=== PATIENT | female | born 1955 | race Caucasian/White ===

== ENCOUNTER 2017-07-18 20:25 | Emergency (ER) | payer OTHER ==
[~2017-07-18] VITALS: Ht 157.5 cm; Wt 91.0 kg
[~2017-07-18 20:25] MED LIST: BACT800T5 PO; CEPH500C3 PO
[2017-07-18] MEDS ORDERED: MULTTAB67 PO (20:36)
[2017-07-18] MEDS ORDERED: ACETAMINOPHEN 500 MG CPLT PO ONE (20:45)
--- NOTE | 2017-07-18 21:02 | RADRPT ---
EXAM DATE/TIME: 07/18/2017 20:44 [place] COMPARISON: No previous studies available for comparison. INDICATIONS : Fall tonight in parking lot of [facility] going into work. Pain on posterior aspect. MEDICAL HISTORY : None. SURGICAL HISTORY : None. ENCOUNTER: Initial ACUITY: 1 day PAIN SCORE: 6/10 LOCATION: Left Hand FINDINGS: Three view examination of the left hand demonstrates no acute fracture or malalignment. There is soft tissue swelling over the dorsum of the metacarpals. Mild osteophytic change is present.. The carpa l bones appear intact. The interphalangeal and metacarpophalangeal joints are intact. Bony minerali zation is normal. CONCLUSION: 1. Soft tissue swelling over the dorsum of the metacarpals with no acute fracture or malalignment. 2. Mild osteoarthritic change. Sahil Michele MD on July 18, 2017 at 20:59 Board Certified Radiologist. This report was verified electronically.
[2017-07-18 21:05] VITALS: BP 161/77; PULSE 87; RESP 16; TEMP 97.5
--- NOTE | 2017-07-18 21:13 | PD ---
HPI Chief Complaint: Fall Time Seen by Provider: 20:27 Travel History International Travel<30 days: No Contact w/Intl Traveler<30days: No Traveled to known affect area: No History of Present Illness HPI Patient comes in complaining of left hand pain after mechanical fall in the parking lot today. Patient states she went to get out of her car when her ankle gave out on her causing her to fall to her knees and catching herself with the left hand causing injury. Patient states she has been applying ice to it and working without any problems however her supervisor prepress recommended she be evaluated. Patient complaining of right hip pain describes as a soreness. Patient states she thinks she just aggravated her arthritis. Patient denies any head injury, loss consciousness, numbness tingling anywhere, loss of bowel or bladder, chest pain, shortness breath, or fevers. Denies any numbness or tingling. Denies any difficulty ambulating. Pain is worse to palpation. 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 SKIN: Focused skin assessment warm and dry. Superficial abrasions noted bilateral knees. HEAD: Atraumatic. Normocephalic. EYES: Pupils equal and round. EOMI. No scleral icterus. No injection or drainage. ENT: No nasal bleeding or discharge. Mucous membranes pink and moist. NECK: Trachea midline. Supple. No nuclear rigidity. CARDIOVASCULAR: Radial dorsal pulses 2+, intact, and equal bilaterally. Capillary refill less than 2 seconds.. RESPIRATORY: No accessory muscle use. No respiratory distress. MUSCULOSKELETAL: No obvious deformities. No clubbing. No cyanosis. No edema. Full range of motion. Wrist: FROM and equal BL with passive flexion, extension, and pronation/supination. Capillary refill less than 2 seconds distal to injury and equal BL. FROM distal to injury and equal BL. Strength distal to injury equal BL. NV intact distal to injury. Flexion and extension of thumb equal BL. Equal strength and movement with abduction/adductions of BL fingers. Team Physician strength equal BL. No tenderness to the anatomical snuffbox. Soft tissue swelling noted over the dorsal aspect of left hand second metacarpal. Mildly tender to palpation. There is no crepitus. Hip: FROM and equal BL with passive flexion, extension, Abduction, Adduction, and internal/external rotation. Pulses equal BL distal to injury. Capillary refill less than 2 seconds distal to injury and equal BL. FROM distal to injury and equal BL. Strength distal to injury equal BL. NV intact distal to injury and equal BL. Plantar flexion and dorsal flexion equal BL. Dorsal pulses equal BL. Sensation equal BL 1st web space. NEUROLOGICAL: Awake and alert. No obvious cranial nerve deficits. Motor grossly within normal limits. Normal speech. Normal gait. PSYCHIATRIC: Appropriate mood and affect; insight and judgment normal. Data Data Last Documented VS Vital Signs Date Time Temp Pulse Resp B/P (MAP) Pulse Ox O2 Delivery O2 Flow Rate FiO2 07/18/17 21:18 07/18/17 21:05 97.5 87 16 Orders Orders Acetaminophen (Tylenol) (07/18/17 20:45) Ice/Cold Pack (07/18/17 20:34) Hand, Complete ([id number]) (07/18/17 ) Ed Discharge Order (07/18/17 21:13) [facility] Medical Decision Making Medical Screen Exam Complete: Yes Emergency Medical Condition: Yes Interpretation(s) Left hand x-ray read by the radiologist shows: 1. Soft tissue swelling over the dorsum of the metacarpals with no acute fracture or malalignment. 2. Mild osteoarthritic change. Differential Diagnosis Fracture, strain, contusion, dislocation, other Narrative Course The patient appears to have suffered a contusion of the extremity. There is no clinical evidence to suspect bony injury by exam. Radiographic examination revealed no fracture seen at this time. The patient has full range of motion on active and passive motions. There is no significant edema. There is no proximal or distal joint effusion. The distal extremity appears neurovascularly intact, without evidence of neurovascular injury nor compartment syndrome. Tendon exam also was intact. The patient was discharged on pain medication instructions and given warnings for vascular compromise. The patient is to follow up with their regular physician. The patient agrees with plan. Patient in no obvious distress upon re-evaluation. All pertinent Radiology result(s) discussed with patient. Any questions/concerns in reference to patient diagnosis/condition discussed and clarified prior to patient's discharge. Reinforced sheer importance of close follow up with patient's primary physician or primary care clinic. Instructed patient to return to ED immediately, if symptoms return/worsen. Patient showed understanding of above instructions. Further instructions and recommendations were detailed in discharge paperwork. Patient ambulated without difficulty out of ED at discharge. Diagnosis Primary Impression: Contusion of left hand, initial encounter Additional Impression: Fall Qualified Codes: W19.XXXA - Unspecified fall, initial encounter Patient Instructions: Contusion in Adults (ED), Fall Prevention (ED), General Instructions Additional Instructions: Follow-up with your primary care physician next week for reevaluation. Use over -the-counter Tylenol for pain control as needed. Follow instructions on the packaging. Apply ice to affected area 20 minutes per hour as needed for pain. Return to the emergency department if symptoms get worse. Disposition: 01 DISCHARGE HOME Condition: Stable Carlos Godinez Jul 18, 2017 21:13
== END 2017-07-18 21:46 | disposition home or self-care (01) ==
LOC: NEPD 20:25
DX: S60.222A Contusion of left hand, initial encounter (principal); M25.551 Pain in right hip; S80.212A Abrasion, left knee, initial encounter; S80.211A Abrasion, right knee, initial encounter; W18.30XA Fall on same level, unspecified, initial encounter; Y92.481 Parking lot as the place of occurrence of the external cause
CPT/HCPCS: 73130; 99283